=== PATIENT | male | born 1980 | race Caucasian/White ===

== ENCOUNTER 2016-07-30 23:53 | Emergency (ER) | payer MEDICAID, OTHER ==
[~2016-07-30] VITALS: Ht 170.2 cm; Wt 111.0 kg
[~2016-07-30 23:53] MED LIST: CEPH-443 PO; IBUP-1542 PO; IBUP800T25 PO
[2016-07-30 23:55] VITALS: Ht 170.2 cm; Wt 111.0 kg
[2016-07-31] MEDS ORDERED: CEFTRIAXONE 1 GM/50 ML (PMX) 50 ML IVPB STA (00:06)
[2016-07-31] MEDS ORDERED: SOD CHLORIDE 0.9% 1,000 ML IV STA (00:06)
[2016-07-31] MEDS ORDERED: SOD CHLORIDE 0.9% 100 ML ONE (00:20)
[2016-07-31] MEDS ORDERED: IOHEXOL 300MG/ML 150 ML BTL ONE (00:20)
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
[2016-07-31 00:55] LABS: ALBUMIN 4.4 g/dl (3.3-4.9)
[2016-07-31 00:56] LABS: POTASSIUM 3.9 mmol/L (3.5-5.1)
[2016-07-31 00:58] LABS: ALBUMIN/GLOBULIN RATIO 1.37; BILIRUBIN,INDIRECT 0.1 mg/dl (0-1.1); BILIRUBIN,TOTAL 0.1 mg/dl (0.2-1.3); CREATININE 1.01 mg/dl (0.61-1.24); TOTAL PROTEIN 7.6 g/dl (6.1-8.1)
[2016-07-31 00:59] LABS: CALCIUM 9.5 mg/dl (8.4-10.2)
[2016-07-31 01:05] LABS: PARTIAL THROMBOPLASTIN TIME 25.4 Sec (25.0-35.0)
[2016-07-31 01:27] LABS: INR 1.03; PROTIME 13.5 Sec (12.2-14.2); PT RATIO 1.1
[2016-07-31 01:46] LABS: WHITE BLOOD COUNT 10.9 10^3/ul (4.8-10.8)
[2016-07-31 01:47] LABS: BASOPHILS % 0.5 % (0.0-2.0); EOSINOPHILS % 0.9 % (0.0-7.0); HEMATOCRIT 41.1 % (42.0-52.0); HEMOGLOBIN 14.1 g/dl (14.0-18.0); LYMPHOCYTES # 2.1 10^3/ul (0.8-2.9); LYMPHOCYTES % 19.2 % (15.0-51.0); MEAN CORPUSCULAR HEMOGLOBIN 29.4 pg (29.0-33.0); MEAN CORPUSCULAR HGB CONC 34.3 g/dl (32.0-37.0); MEAN CORPUSCULAR VOLUME 85.6 fl (82.0-101.0); MEAN PLATELET VOLUME 10.1 fl (7.4-10.4); MONOCYTES % 7.1 % (0.0-11.0); NEUTROPHIL # 7.9 10^3/ul (1.6-7.5); PLATELET COUNT 372 10^3/UL (140-440); RED CELL DISTRIBUTION WIDTH 12.8 % (11.5-14.5)
[2016-07-31 01:48] LABS: BASOPHIL # 0.1 10^3/ul (0.0-0.1); EOSINOPHILS # 0.1 10^3/ul (0.0-0.5); MONOCYTE # 0.8 10^3/ul (0.3-0.9)
[2016-07-31 03:08] VITALS: TEMP 98.2
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
[2016-07-31 03:23] VITALS: BP 123/77; PULSE 111; RESP 17
== END 2016-07-31 03:22 | disposition home or self-care (01) ==
LOC: E/R 23:53
DX: S21.202A Unspecified open wound of left back wall of thorax without penetration into thoracic cavity, initial encounter (principal); S31.109A Unspecified open wound of abdominal wall, unspecified quadrant without penetration into peritoneal cavity, initial encounter; Y04.0XXA Assault by unarmed brawl or fight, initial encounter
CPT/HCPCS: 36415; 71260; 74177; 80053; 83690; 85025; 85610; 85730; 96374; J0696; J7030; Q9967; Z7502; Z7610

== ENCOUNTER 2016-09-08 11:54 | Emergency (ER) | payer OTHER ==
[~2016-09-08] VITALS: Ht 157.5 cm; Wt 68.2 kg
[2016-09-08 11:56] VITALS: Ht 157.5 cm; Wt 68.2 kg
[2016-09-08] MEDS ORDERED: KETOROLAC 60 MG INJ IM STA (12:46)
[2016-09-08] MEDS ORDERED: FLUT9.9S NASAL (12:53)
[2016-09-08] MEDS ORDERED: SODI126M NASAL (12:53)
[2016-09-08] MEDS ORDERED: IBUP800T25 PO (12:53)
--- NOTE | 2016-09-08 13:10 | ERD ---
ER Documentation Chief Complaint Date/Time DATE: 09/08/16 TIME: 12:57 Chief Complaint leary x 2 days HPI 35-year-old male complaining of right-sided headache 3 days. He described pain as sharp and pulsating, pain increases when he bends his head forward. He took ibuprofen 1 hour ago, which has helped the pain slightly. Denies photophobia or phonophobia. Denies nausea or vomiting. Denies recent head injury. Denies peripheral weakness or paresthesia. ROS All systems reviewed and are negative except as per history of present illness. Medications Home Meds Active Scripts Fluticasone Propionate (Flonase Allergy Relief) 9.9 Ml [place].susp, 1 SPRAY NASAL DAILY, #1 BOTTLE TO EACH NOSTRIL Prov:PIYUSH MARTIN NP 09/08/16 Sodium Chloride (Saline Nasal Mist) 126 Ml Mist, 2 SPRAY NASAL Q2H Y for NASAL CONGESTION, #1 BOTTLE Prov:PIYUSH MARTIN. TIM 09/08/16 Ibuprofen* (Motrin*) 800 Mg Tab, 800 MG PO Q8 Y for PAIN AND OR ELEVATED TEMP, # 30 TAB Prov:PIYUSH MARTIN NP 09/08/16 Cephalexin* (Keflex*) 500 Mg Capsule, 500 MG PO QID for 5 Days, CAP Prov:RICCARDO LUCIO MD 01/18/16 Ibuprofen* (Motrin*) 800 Mg Tab, 800 MG PO Q6, #30 TAB take with food Prov:VITOR KOROMA PA-C 01/18/16 Ibuprofen* (Motrin*) 600 Mg Tab, 600 MG PO Q6, #30 TAB Prov:GEMMA LAGOS 01/14/16 Allergies Allergies: Coded Allergies: No Known Allergy (Unverified , 01/18/16) PMhx/Soc Medical and Surgical Hx: pt denies Medical Hx History of Surgery: No Hx Neurological Disorder: No Hx Respiratory Disorders: No Hx Cardiac Disorders: No Hx Psychiatric Problems: No Hx Miscellaneous Medical Probl: No Hx Alcohol Use: Yes Hx Substance Use: No Hx Tobacco Use: No Physical Exam Vitals Vital Signs Date Time Temp Pulse Resp B/P Pulse Ox O2 Delivery O2 Flow Rate FiO2 09/08/16 11:56 98.1 70 18 140/89 99 Physical Exam General impression: Well-developed, well-nourished. Alert, oriented, in no acute distress Head: Normocephalic, atraumatic. Eyes: PERRL, EOM normal. Sclerae are normal. Conjunctiva not injected. ENT: External canals patent. TM'sclear. Right nare erythematous. Oral mucosa and oropharynx are normal. Right frontal and maxillary sinuses tender to percussion. Neck: Supple, nontender. No lymphadenopathy. No nuchal rigidity. Right sternocleidomastoid spasm. Respiration: Normal respiratory effort. Lungs clear to auscultate bilaterally. No wheezes, rales or rhonchi. Cardiovascular: Regular rate and rhythm. No murmurs or extra heart sounds. Abdomen: Abdomen normal to inspection. Nontender. No masses or organomegaly. Bowel sounds normal. Back: Normal to inspection. No midline spine tenderness. No CVA tenderness. Extremities: Extremities normal to inspection, nontender. ROM normal. Neuro: Mental status normal, speech normal. PLANNER/SCHEDULER II-XII intact. Normal sensation and strength in all 4 extremities. No focal weakness noted. Skin: Normal turgor. No rash or lesions. Psych: Normal mood and affect. Results 24 hrs Current Medications Medications (Trade) Dose Ordered Sig/Diallo Route PRN Reason Start Time Stop Time Status Last Admin Dose Admin Ketorolac Tromethamine (Toradol) 60 mg ONCE STAT IM 09/08/16 12:46 09/08/16 12:47 DC Procedures/MDM Well-appearing 35-year-old male presented to ED with right-sided headache 3 days. Based on patient history exam findings, I suspect his headache is due to combination of sinus headache and tension headache. Patient given Toradol 60 mg IM in the ED. Patient reports improvement in pain after Toradol. I have low suspicion for intracranial hemorrhage or tumor, stroke, cerebral artery dissection, joint cell arteritis, acute angle-closure glaucoma. Patient appears well, stable for discharge and outpatient management. Medical decision making shared with patient and family. Education provided to patient and family. Patient and family expressed understanding of the plan. Medications on discharge: Ibuprofen, saline nasal spray, Flonase. Follow-up: Primary care provider in 2-3 days or return to ED if worse. Departure Diagnosis: Primary Impression: Headache Headache type: tension-type Headache chronicity pattern: acute headache Intractability: not intractable Qualified Code: G44.209 - Acute non intractable tension-type headache Additional Impression: Acute sinusitis Sinusitis location: frontal Recurrence: non-recurrent Qualified Code: J01.10 - Acute non-recurrent frontal sinusitis Condition: Good Patient Instructions: Self-Care for Headaches, Sinus Headache Referrals[facility] Usted se leary hecho un examen mdico de control que le indica que no est en dot condicin que requiera tratamiento urgente en el Departamento de Emergencia. Un estudio ms profundo y el tratamiento de farr condicin pueden esperar sin ningn riesgo hasta que usted sea atendida/o en el consultorio de farr mdico o dot cl clarita. Es responsabilidad suya arreglar dot bryson para el seguimiento del lei. MANEJO DE CONDICIONES NO URGENTES EN EL FUTURO 1) Si usted tiene un mdico de atencin primaria: Usted debera llamar a farr mdico de atencin primaria antes de venir al departamento de emergencia. Despus de las horas de consultorio, farr doctor o farr asociado/a est disponible por telfono. El mdico o enfermero de haydee en el servicio telefnico puede asesorarle por rafael medio para atender el problema, o lei contrario se puede programar dot bryson. 2) Si usted no tiene un mdico de atencin primaria: Llame al mdico o clnica de referencia que aparece abajo yamile las horas de consultorio para hacer dot bryson para que le vean. CLINICAS: [facility] [phone] [facility] [phone] [facility] [id number] [facility]. [facility] [phone] [facility]. [facility] [phone] [facility]. [phone] [address] Additional Instructions: Llame al doctor MAANA y davidson dot BRYSON PARA DENTRO DE 2-3 ANNA.Dgale a la secretaria que nosotros le instruimos hacer esta bryson.Avise o llame si farr condicin se empeora antes de la bryson. Regresa aqui si peor o no mejor. PIYUSH MARTIN. TIM Sep 08, 2016 13:08
== END 2016-09-08 13:46 | disposition home or self-care (01) ==
LOC: FTE 11:54
DX: G44.209 Tension-type headache, unspecified, not intractable (principal); J01.10 Acute frontal sinusitis, unspecified
CPT/HCPCS: 96372; J1885

== ENCOUNTER 2016-09-14 14:22 | Emergency (ER) | payer OTHER ==
[~2016-09-14] VITALS: Wt 89.0 kg
[~2016-09-14 14:22] MED LIST changes: +FLUT9.9S NASAL; +SODI126M NASAL
--- NOTE | 2016-09-14 15:32 | EN ---
Date/Time of Note Date/Time of Note DATE: 09/14/16 TIME: 15:31 ER Progress Note Rapid medical evaluation note: 35-year-old male comes in with right-sided facial pain and congestion for a week now. He states that his pain did not get better, he is requesting further testing and imaging and evaluation and will be sent emergency room 2. SATURNINO PAVON PA-C Sep 14, 2016 15:32
[2016-09-14] MEDS ORDERED: AMO500 PO (16:52)
[2016-09-14] MEDS ORDERED: HYDR-902 PO (16:52)
--- NOTE | 2016-09-14 19:01 | ERD ---
ER Documentation Chief Complaint Date/Time DATE: 09/14/16 TIME: 18:57 Chief Complaint SINUS HEADACHE X 1 WEEK HPI Patient is a 35-year-old male with hypertension who presents with forehead pain. He said that he has pain in his forehead which radiates to the back of his head. He said that he was told he had a sinus infection the last time he was in the emergency department recently but that no antibiotics were given. The patient is now worse with pain. The patient tried ibuprofen. The pain was gradual in onset. There were no fevers. The patient does not currently have a primary doctor. Upon review of old medical records patient has multiple visits to the ER for various complaints. ROS All systems reviewed and are negative except as per history of present illness. Medications Home Meds Active Scripts Hydrocodone/Acetaminophen (Kerrick 10-325 Tablet) 1 Each Tablet, 1 TAB PO Q6H Y for PAIN, #7 TAB Prov:MONIE CONCEPCION MD 09/14/16 Amoxicillin* (Amoxicillin*) 500 Mg Cap, 500 MG PO TID for 7 Days, CAP Prov:MONIE CONCEPCION MD 09/14/16 Fluticasone Propionate (Flonase Allergy Relief) 9.9 Ml [place].susp, 1 SPRAY NASAL DAILY, #1 BOTTLE TO EACH NOSTRIL Prov:PIYUSH MARTIN NP 09/08/16 Sodium Chloride (Saline Nasal Mist) 126 Ml Mist, 2 SPRAY NASAL Q2H Y for NASAL CONGESTION, #1 BOTTLE Prov:PIYUSH MARTIN. MANAGER SECONDARY 09/08/16 Ibuprofen* (Motrin*) 800 Mg Tab, 800 MG PO Q8 Y for PAIN AND OR ELEVATED TEMP, # 30 TAB Prov:PIYUSH MARTIN NP 09/08/16 Cephalexin* (Keflex*) 500 Mg Capsule, 500 MG PO QID for 5 Days, CAP Prov:RICCARDO LUCIO MD 01/18/16 Ibuprofen* (Motrin*) 800 Mg Tab, 800 MG PO Q6, #30 TAB take with food Prov:VITOR KOROMA PA-C 01/18/16 Ibuprofen* (Motrin*) 600 Mg Tab, 600 MG PO Q6, #30 TAB Prov:GEMMA LAGOS 01/14/16 Allergies Allergies: Coded Allergies: No Known Allergy (Unverified , 09/08/16) PMhx/Soc Medical and Surgical Hx: pt denies Medical Hx, pt denies Surgical Hx History of Surgery: No Anesthesia Reaction: No Hx Neurological Disorder: No Hx Respiratory Disorders: No Hx Cardiac Disorders: No Hx Psychiatric Problems: No Hx Miscellaneous Medical Probl: No Hx Alcohol Use: No Hx Substance Use: No Hx Tobacco Use: No FmHx Family History: diabetes Physical Exam Vitals Vital Signs Date Time Temp Pulse Resp B/P Pulse Ox O2 Delivery O2 Flow Rate FiO2 09/14/16 14:44 98.0 71 18 160/92 99 Physical Exam Const: Mild distress secondary to pain Head: Atraumatic Eyes: Normal Conjunctiva ENT: Normal External Ears, Nose and Mouth. Neck: Full range of motion..~ No meningismus. Resp: Clear to auscultation bilaterally Cardio: Regular rate and rhythm, no murmurs Abd: Soft, non tender, non distended. Normal bowel sounds Skin: No petechiae or rashes Back: No midline or flank tenderness Ext: No cyanosis, or edema Neur: Awake and alert, cranial nerves II through XII intact, no slurred speech, strength is 5 out of 5 in all 4 extremities, gait is normal Psych: Normal Mood and Affect Procedures/MDM Patient is a 35-year-old male who presents with what appears to be a sinusitis. I doubt intrarenal hemorrhage or mass. I believe the risks of doing a CT scan of the brain with benefits. I doubt subarachnoid hemorrhage, meningitis, or stroke. The patient will be discharged with a prescription for Kerrick. The patient can follow-up with a primary doctor and can return if symptoms worsen. Departure Diagnosis: Primary Impression: Sinusitis Sinusitis location: frontal Chronicity: acute Recurrence: non-recurrent Qualified Code: J01.10 - Acute non-recurrent frontal sinusitis Additional Impression: Headache Headache type: unspecified Headache chronicity pattern: acute headache Intractability: not intractable Qualified Code: R51 - Acute nonintractable headache, unspecified headache type Condition: Fair Patient Instructions: Self-Care for Headaches, Sinusitis, Abx Tx Referrals: [facility] Usted se leary hecho un examen mdico de control que le indica que no est en dot condicin que requiera tratamiento urgente en el Departamento de Emergencia. Un estudio ms profundo y el tratamiento de farr condicin pueden esperar sin ningn riesgo hasta que usted sea atendida/o en el consultorio de farr mdico o dot cl clarita. Es responsabilidad suya arreglar dot bryson para el seguimiento del lei. MANEJO DE CONDICIONES NO URGENTES EN EL FUTURO 1) Si usted tiene un mdico de atencin primaria: Usted debera llamar a farr mdico de atencin primaria antes de venir al departamento de emergencia. Despus de las horas de consultorio, farr doctor o farr asociado/a est disponible por telfono. El mdico o enfermero de haydee en el servicio telefnico puede asesorarle por rafael medio para atender el problema, o lei contrario se puede programar dot bryson. 2) Si usted no tiene un mdico de atencin primaria: Llame al mdico o clnica de referencia que aparece abajo yamile las horas de consultorio para hacer dot bryson para que le vean. CLINICAS: [facility] [phone] [facility] [phone] [facility]. [facility] [phone] [facility] [place] [phone] [facility]. [place] [phone] [facility]. [phone] [address] Additional Instructions: Llame al doctor MAANA y davidson dot [place] PARA DENTRO DE 1-2 ANNA.Dgale a la secretaria que nosotros le instruimos hacer esta bryson.Avise o llame si farr condicin se empeora antes de la bryson. Regresa aqui si peor o no mejor. MONIE CONCEPCION MD Sep 14, 2016 19:01
== END 2016-09-14 17:40 | disposition home or self-care (01) ==
LOC: FTE 14:22
DX: J01.10 Acute frontal sinusitis, unspecified (principal); I10 Essential (primary) hypertension
CPT/HCPCS: 99284

== ENCOUNTER 2016-09-21 15:06 | Emergency (ER) | payer OTHER ==
[~2016-09-21] VITALS: Ht 165.1 cm; Wt 97.8 kg
[~2016-09-21 15:06] MED LIST changes: +AMO500 PO; +HYDR-902 PO
[2016-09-21 15:10] VITALS: Ht 165.1 cm; Wt 97.8 kg
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
[2016-09-21] MEDS ORDERED: CEFU500T45 PO (16:38)
[2016-09-21] MEDS ORDERED: PRED20TA PO (16:38)
[2016-09-21] MEDS ORDERED: TRAM-40 PO (16:38)
--- NOTE | 2016-09-21 16:41 | ERA ---
ER Documentation Chief Complaint Date/Time DATE: 09/21/16 TIME: 16:40 Chief Complaint HAS SINUS PELAYO X 2 WEEKS HPI This 35-year-old male presents with 2 week history of pain in his right maxillary sinus and nasal congestion. He has been treated twice by review of the medical record for sinusitis with Keflex and amoxicillin. Denies fevers but has persistent pain and congestion and pain in the right maxillary area. Denies history of trauma, fevers, shortness breath, chest pain, additional symptoms. ROS All systems reviewed and are negative except as per history of present illness. Medications Home Meds Active Scripts Tramadol Hcl* (Ultram*) 50 Mg Tablet, 50 MG PO Q6H Y for PAIN, #14 TAB Prov:KEISHA NIÑO MD 09/21/16 Cefuroxime Axetil* (Cefuroxime Axetil*) 500 Mg Tablet, 500 MG PO BID, #10 TAB Prov:KEISHA NIÑO MD 09/21/16 Prednisone* (Prednisone*) 20 Mg Tab, 60 MG PO DAILY for 4 Days, TAB Prov:KEISHA NIÑO MD 09/21/16 Hydrocodone/Acetaminophen ([place] 10-325 Tablet) 1 Each Tablet, 1 TAB PO Q6H Y for PAIN, #7 TAB Prov:MONIE CONCEPCION MD 09/14/16 Amoxicillin* (Amoxicillin*) 500 Mg Cap, 500 MG PO TID for 7 Days, CAP Prov:MONIE CONCEPCION MD 09/14/16 Fluticasone Propionate (Flonase Allergy Relief) 9.9 Ml [place].susp, 1 SPRAY NASAL DAILY, #1 BOTTLE TO EACH NOSTRIL Prov:PIYUSH MARTIN NP 09/08/16 Sodium Chloride (Saline Nasal Mist) 126 Ml Mist, 2 SPRAY NASAL Q2H Y for NASAL CONGESTION, #1 BOTTLE Prov:PIYUSH MARTIN NP 09/08/16 Ibuprofen* (Motrin*) 800 Mg Tab, 800 MG PO Q8 Y for PAIN AND OR ELEVATED TEMP, # 30 TAB Prov:PIYUSH MARTIN NP 09/08/16 Cephalexin* (Keflex*) 500 Mg Capsule, 500 MG PO QID for 5 Days, CAP Prov:RICCARDO LUCIO MD 01/18/16 Ibuprofen* (Motrin*) 800 Mg Tab, 800 MG PO Q6, #30 TAB take with food Prov:VITOR KOROMAKelsea DUFFY 01/18/16 Ibuprofen* (Motrin*) 600 Mg Tab, 600 MG PO Q6, #30 TAB Prov:GEMMA LAGOS Jonh 01/14/16 Allergies Allergies: Coded Allergies: No Known Allergy (Unverified , 09/08/16) PMhx/Soc History of Surgery: No Anesthesia Reaction: No Hx Neurological Disorder: No Hx Respiratory Disorders: No Hx Cardiac Disorders: No Hx Psychiatric Problems: No Hx Miscellaneous Medical Probl: No Hx Alcohol Use: No Hx Substance Use: No Hx Tobacco Use: No Smoking Status: Never smoker Physical Exam Vitals Vital Signs Date Time Temp Pulse Resp B/P Pulse Ox O2 Delivery O2 Flow Rate FiO2 09/21/16 15:10 98.1 78 20 136/75 99 Physical Exam Const: [] Alert, [id number] Head: Atraumatic Eyes: Normal Conjunctiva ENT: Normal External Ears, Nose and Mouth. 3+ nasal congestion primarily the right and tenderness in the right maxillary sinus area. Postnasal drip. Neck: Full range of motion..~ No meningismus. Resp: Clear to auscultation bilaterally Cardio: Regular rate and rhythm, no murmurs Abd: Soft, non tender, non distended. Normal bowel sounds Skin: No petechiae or rashes Back: No midline or flank tenderness Ext: No cyanosis, or edema Neur: Awake and alert Psych: Normal Mood and Affect Procedures/MDM CT sinuses shows bilateral maxillary sinusitis worse on the right than the left. No other acute findings. Patient presents with signs and symptoms of recurrent or persistent sinusitis. We treated with short of prednisone, and Ceftin and recommendations to see ENT for persistent symptoms. Her signs and symptoms do not suggest intracranial lesions or central defect or symptoms. There is no evidence of sepsis or meningitis. Patient should otherwise recheck for new or worsening symptoms or with ENT and primary doctor as directed. The patient was stable with no new complaints during the ER course. Clinically, there is no current evidence to suggest meningitis, sepsis, acute abdomen, pneumonia, acute coronary syndrome, pulmonary embolism, or any other emergent condition appearing to require further evaluation or hospitalization. The patient should certainly return for any new or worsening symptoms per the aftercare instructions. They should otherwise follow-up with her primary care doctor for reevaluation this week. Departure Diagnosis: Primary Impression: Sinusitis Qualified Code: J01.00 - Acute maxillary sinusitis, recurrence not specified Additional Impression: Headache Qualified Code: R51 - Nonintractable headache, unspecified chronicity pattern , unspecified headache type Condition: Stable Patient Instructions: Sinusitis, Abx Tx Referrals: FAWN VALENTE MD, STEPHEN H MD Additional Instructions: CT scan confirms signs of sinusitis. Recommend see a specialist for persistent symptoms or otherwise for new or worsening symptoms. KEISHA NIÑO MD Sep 21, 2016 16:41
[2016-09-21 17:13] VITALS: BP 129/77; PULSE 73; RESP 20; TEMP 98
== END 2016-09-21 17:16 | disposition home or self-care (01) ==
LOC: FTE 15:06
DX: J01.00 Acute maxillary sinusitis, unspecified (principal); R51 Headache
CPT/HCPCS: 70486; Z7502